=== PATIENT | female | born 1950 ===

== ENCOUNTER 2017-05-22 08:50 | Outpatient (CLI) ==
--- NOTE | 2017-05-22 09:44 | DEXA ---
EXAM: Bone density HISTORY: Postmenopausal bone density evaluation on patient with a familial history of osteoporosis with vitamin D supplementation and arthritis COMPARISON: None TECHNIQUE: Digital images of the thoracolumbar spine and hips were provided and calculation of bone density was obtained. FINDINGS: Digital images demonstrate no compression deformities of the thoracolumbar spine. DEXA scan of the lumbar spine is of good quality. The total BMD equals 1.106 grams per square centimeter. T-score is - 0.6 and Z-score of - 0.2 DEXA of the hips was performed and of good quality. Total bone marrow density of 0.828 grams per square centimeter. T score is - 1.4 and Z-score of - 1.1 IMPRESSION: Bone density of the hip and lumbar spine demonstrate osteopenia of the hips and normal bone density of the lumbar spine by WHO criteria. FRAX calculation tool demonstrates 10-year major osteoporotic fracture risk of 14.4% and hip fractur e risk of 1.8%. T score greater than -1 is normal T score -1 to -2.5 is osteopenia T score less than - 2.5 is osteoporosis
== END 2017-05-22 08:51 | disposition home or self-care (01) ==
LOC: RAD 08:50
PROVIDERS: ATTEND Nurse Practitioner Family
DX: Z78.0 Asymptomatic menopausal state (principal); Z13.820 Encounter for screening for osteoporosis

== ENCOUNTER 2018-07-30 08:53 | Day surgery (SDC) ==
[2018-07-30] MEDS: BETADINE OPTH PREP OP PRN ×2 (09:45→10:21)
[2018-07-30] MEDS: TETRACAINE 0.5% UNIT-DOSE OP PRN ×2 (09:45→10:21)
[2018-07-30] MEDS: CYCLOGYL 2% OPTH OP PRN ×3 (09:46→09:56)
[2018-07-30] MEDS ORDERED: LIDOCAINE 1% 20 ML MDV ID STA (09:54)
[2018-07-30] MEDS ORDERED: DEX-MOXI-KETOR OPTH INJ 1/0.5/0.4 MG/ML IO ONE (09:54)
[2018-07-30] MEDS ORDERED: BSS WITH EPINEPHRINE OP ONE (09:54)
[2018-07-30] MEDS ORDERED: LIDOCAINE 1%/PHENYLEPHRINE 1.5% BSS (SURGERY) INTRAOCULA ONE (09:54)
[2018-07-30] MEDS ORDERED: BRIMONIDINE TARTRATE 0.2% OPTH SOL OP PRN (09:54)
[2018-07-30] MEDS ORDERED: ZOFRAN 4 MG/2 ML IVP ONE (09:54)
[2018-07-30 10:01] VITALS: TEMP 98.2
[2018-07-30] MEDS ORDERED: DIPRIVAN 20 ML VIAL IVP ONE (10:20)
[2018-07-30] MEDS ORDERED: ZOFRAN 4 MG/2 ML ONE (10:20)
[2018-07-30] MEDS ORDERED: VERSED ONE (10:20)
[2018-08-01 11:29] VITALS: BP 132/66
== END 2018-07-30 11:15 | disposition home or self-care (01) ==
LOC: SURG 08:53
PROVIDERS: ATTEND Ophthalmology
DX: H25.811 Combined forms of age-related cataract, right eye (principal)